=== PATIENT | female | born 1960 | race Caucasian/White ===

== ENCOUNTER 2019-10-14 00:06 | Observation (INO) ==
[2019-10-14 05:02] LABS: Basophils % 0.9 %; Monocytes % 8.3 %
[2019-10-14 05:03] LABS: Prothrombin Time 11.6 Seconds (9.4-12.1)
[2019-10-14 05:04] LABS: Basophils # 0.1 K/mcL (0.0-0.2); Eosinophils # 0.2 K/mcL (0.0-0.6); Eosinophils % 3.1 %; Hematocrit 28.1 % (35.3-44.9); Hemoglobin 7.9 g/dL (11.5-15.4); Immature Granulocytes % 0.2 % (0-4); Mean Corpuscular HGB Conc 28.1 g/dL (31.6-35.5); Mean Corpuscular Hemoglobin 19.6 pg (28.0-33.3); Mean Corpuscular Volume 69.7 fL (83.0-100.0); Monocytes # 0.5 K/mcL (0.0-1.3); Platelet Count 401 K/mcL (140-400); Red Blood Count 4.03 M/mcL (3.82-4.97); Red Cell Distribution Width 19.7 % (11.5-14.5); Segmented Neutrophils % 52.5 %; White Blood Count 5.8 K/mcL (4.3-11.1)
[2019-10-14 05:07] LABS: Neutrophils # 3.1 K/mcL (1.6-8.9)
[2019-10-14 05:24] LABS: Alanine Aminotransferase 10 Units/L (7-52); Albumin 4.2 g/dL (3.5-5.7); Albumin/Globulin Ratio 1.4 (1.1-2.2); Alkaline Phosphatase 89 Units/L (34-104); Aspartate Amino Transferase 16 Units/L (13-39); BUN/Creatinine Ratio 5 (6-26); Bilirubin,Total 0.4 mg/dL (0.3-1.0); Blood Urea Nitrogen 3 mg/dL (6-20); Calcium 9.2 mg/dL (8.6-10.3); Carbon Dioxide 20 mEq/L (23-29); Chloride 101 mEq/L (98-107); Glucose 109 mg/dL (70-105); Magnesium 1.5 mg/dL (1.6-2.6); Osmolality,Calculated 273 (280-300); Phosphorous 2.6 mg/dL (2.7-4.5); Potassium 3.7 mEq/L (3.5-5.1); Sodium 133 mEq/L (136-145); Total Protein 7.2 g/dL (6.4-8.9); eGFR For African Americans > 60 (> 60); eGFR For Non-African Americans > 60 (> 60)
[2019-10-14 05:39] LABS: Anisocytosis 1+ (Not Present); Hypochromasia Present (Not Present)
[2019-10-14 05:40] LABS: Platelet Estimate Normal (Normal)
[2019-10-14] MEDS: Pantoprazole 40 MG VIAL IVP SCH ×2 (06:18→16:09)
[2019-10-14] MEDS ORDERED: Ondansetron ODT 4 MG TAB.RAPDIS SL PRN (06:45)
[2019-10-14] MEDS ORDERED: Ondansetron 4 MG/2 ML VIAL IVP PRN (07:09)
[2019-10-14] MEDS ORDERED: Naloxone 0.4 MG/ML INJ IVP PRN (08:29)
[2019-10-14] MEDS ORDERED: Ringers Solution, Lactated 1,000 ML IVC SCH (08:30)
[2019-10-14] MEDS ORDERED: Acetaminophen 325 MG TABLET PO PRN (09:35)
[2019-10-14] MEDS ORDERED: Magnesium Sulfate 1 GM/102 ML PIGGYBACK IVPB ONE (15:18)
[2019-10-14] MEDS: *HR* HYDROcodone/Acet 10/325 mg TABLET PO PRN ×2 (16:08→21:48)
[2019-10-14] MEDS: Gabapentin 300 MG CAPSULE PO SCH (20:47)
[2019-10-14] MEDS ORDERED: Melatonin 3 MG TABLET PO ONE (23:52)
[2019-10-15 02:46] LABS: Hematocrit 26.1 % (35.3-44.9); White Blood Count 3.7 K/mcL (4.3-11.1)
[2019-10-15 02:48] LABS: Basophils # 0.1 K/mcL (0.0-0.2); Basophils % 1.6 %; Eosinophils # 0.3 K/mcL (0.0-0.6); Eosinophils % 7.5 %; Immature Granulocytes % 0.3 % (0-4); Lymphocytes % 38.8 %; Mean Corpuscular HGB Conc 26.8 g/dL (31.6-35.5); Mean Corpuscular Hemoglobin 19.1 pg (28.0-33.3); Mean Corpuscular Volume 71.3 fL (83.0-100.0); Monocytes # 0.4 K/mcL (0.0-1.3); Neutrophils # 1.5 K/mcL (1.6-8.9); Platelet Count 379 K/mcL (140-400); Red Blood Count 3.66 M/mcL (3.82-4.97); Red Cell Distribution Width 20.3 % (11.5-14.5); Segmented Neutrophils % 40.8 %
[2019-10-15 02:52] LABS: Lymphocytes # 1.4 K/mcL (0.6-4.6)
[2019-10-15 03:04] LABS: BUN/Creatinine Ratio 8 (6-26); Blood Urea Nitrogen 5 mg/dL (6-20); Calcium 8.8 mg/dL (8.6-10.3); Carbon Dioxide 22 mEq/L (23-29); Chloride 104 mEq/L (98-107); Glucose 88 mg/dL (70-105); Osmolality,Calculated 281 (280-300); Potassium 3.7 mEq/L (3.5-5.1); Sodium 137 mEq/L (136-145); eGFR For African Americans > 60 (> 60); eGFR For Non-African Americans > 60 (> 60)
[2019-10-15 03:07] LABS: Anisocytosis 3+ (Not Present); Microcytosis Present (Not Present)
[2019-10-15 03:08] LABS: Hypochromasia Present (Not Present); Platelet Estimate Normal (Normal)
[2019-10-15 03:17] LABS: Thyroid Stimulating Hormone 0.508 mcIU/mL (0.340-5.600)
[2019-10-15] MEDS: Pantoprazole 40 MG VIAL IVP SCH (05:20)
[2019-10-15 06:39] LABS: Magnesium 1.8 mg/dL (1.6-2.6)
[2019-10-15 08:58] LABS: Hemoglobin 8.4 g/dL (11.5-15.4)
[2019-10-15] MEDS: *HR* HYDROcodone/Acet 10/325 mg TABLET PO PRN (09:02)
[2019-10-15] MEDS: Gabapentin 300 MG CAPSULE PO SCH (09:02)
[2019-10-15 11:32] LABS: Estimated Average Glucose 131 mg/dl
[2019-10-15 12:15] VITALS: BP 104/68
== END 2019-10-15 18:16 | disposition home or self-care (01) ==
LOC: 3BNU → SUATTDRO 02:11
PROVIDERS: ADMIT Internal Medicine; ATTEND Internal Medicine